=== PATIENT | male | born 1950 | race Two or more races ===

== ENCOUNTER 2020-02-22 05:53 | Inpatient (IN) | payer MEDICARE ==
[~2020-02-22] VITALS: Ht 165.1 cm; Wt 97.5 kg
[2020-02-22] VITALS (18 sets, daily range): BP systolic 111–156; BP diastolic 64–95
[2020-02-22] MEDS ORDERED: FLOMAX0.4 MG ORAL (06:47)
[2020-02-22] MEDS ORDERED: TYLENOL EXTRA500 MG ORAL (06:47)
[2020-02-22] MEDS ORDERED: ceFAZolin sod 1 GM in NS 55 ML IVPB ONE (07:00)
[2020-02-22] MEDS ORDERED: Midazolam 2mg/2ml Inj ONE (07:13)
[2020-02-22] MEDS ORDERED: fentaNYL 100 mcg/2 mL IV ONE (07:13)
[2020-02-22] MEDS ORDERED: Rocuronium Bromide 50mg/5ml Inj IV ONE (07:17)
[2020-02-22] MEDS ORDERED: LR 1000ml ONE (07:30)
[2020-02-22] MEDS ORDERED: Sterile Water Irrig 1000ml IRRIG ONE (07:30)
--- NOTE | 2020-02-22 07:39 | Anethesia Preoperative Eval ---
Anesthesia Pre-op PMH/ROS General Date of Evaluation: Feb 22, 2020 Time of Evaluation: 07:39 Anesthesiologist: lorrie ASA Score: ASA 2 Mallampati Score Class I : Soft palate, uvula, fauces, pillars visible Class II: Soft palate, uvula, fauces visible Class III: Soft palate, base of uvula visible Class IV: Only hard plate visible Mallampati Classification: Class III Surgeon: Martin Diagnosis: Enlarged Prostate Surgical Procedure: TURP Family History: no anesthesia problems Allergies: Coded Allergies: No Known Allergies (Unverified , 02/21/20) Medications: see eMAR Patient NPO?: Yes NPO Date: Feb 22, 2020 NPO Time: 00:01 Past Medical History Cardiovascular: Denies: HTN, CAD, SD, valve dz, arrhythmia, other Pulmonary: Denies: asthma, COPD, JUS, other Gastrointestinal/Genitourinary: Denies: GERD, CRI, ESRD, other Neurologic/Psychiatric: Denies: dementia, CVA, depression/anxiety, TIA, other Endocrine: Denies: DM, hypothyroidism, steroids, other HEENT: Denies: cataract (L), cataract (R), glaucoma, [place] (L), [place] (R), other Hematology/Immune: Denies: anemia, DVT, bleeding disorder, other Musculoskeletal/Integumentary: Denies: OA, RA, DJD, DDD, edema, other Other: obesity Anesthesia Pre-op Phys. Exam Physician Exam Last Vital Signs Date Time Temp Pulse Resp B/P (MAP) Pulse Ox O2 Delivery O2 Flow Rate FiO2 02/22/20 06:49 Room Air 02/22/20 06:28 97.0 60 18 115/66 (82) 96 Constitutional: NAD Neurologic: CN 2-12 intact Cardiovascular: RRR Respiratory: CTA Gastrointestinal: S/NT/ND Airway Exam Mallampati Classification 3 Mallampati Score: Class III MO: limited Neck: thick TMD: 2fb Anesthesia Pre-op A/P Studies Pre-op Studies: EKG - SR Risk Assessment & Plan Assessment: covid neg; denies changes in health Plan: GETA Status Change Before Surgery: No Pre-Antibiotics Drug: ancef Given Within 1 Hr of Incision: Yes Time Given: 07:40 Tess Grimes CRNA Feb 22, 2020 07:39
[2020-02-22] MEDS ORDERED: fentaNYL 100 mcg/2 mL IV PRN (07:45)
[2020-02-22] MEDS ORDERED: Acetaminophen (Non formulary) 100 ML IV ONE (07:45)
[2020-02-22] MEDS ORDERED: DiphenhydrAMINE 50mg/ml Inj IVP PRN (07:45)
--- NOTE | 2020-02-22 07:52 | Pre-Procedure Note/Attestation ---
Pre-Procedure Note/Attestation Complete Prior to Procedure Planned Procedure: not applicable Procedure Narrative: TURP Cystolytholopaxy Indications for Procedure Pre-Operative Diagnosis: bladder stone BPH Attestation I attest that I discussed the nature of the procedure; its benefits; risks and complications; and alternatives (and the risks and benefits of such alternatives), prior to the procedure, with the patient (or the patient's legal compliance representative). I attest that, if there was a reasonable possibility of needing a blood transfusion, the patient (or the patient's legal compliance representative) was given the [facility] standardized written summary, pursuant to the Nabil Dacia Blood Safety Act ([place] Health and Safety Code # 1645, as amended). I attest that I re-evaluated the patient just prior to the surgery and that there has been no change in the patient's H&P, except as documented below: Gucci Salazar MD Feb 22, 2020 07:52
[2020-02-22] MEDS ORDERED: Lidocaine 1% MPF 10mg/ml 5ml ONE (07:53)
[2020-02-22] MEDS ORDERED: Neostigmine 1mg/ml 10ml Inj ONE (07:53)
[2020-02-22] MEDS ORDERED: Metoclopramide 10mg/2ml Inj ONE (07:53)
[2020-02-22] MEDS ORDERED: Glycopyrrolate 0.2mg/ml 1ml Vial ONE (07:53)
--- NOTE | 2020-02-22 08:49 | Immediate Post-Op Evaluation ---
Immediate Post-Op Evalulation Immediate Post-Op Evalulation Procedure: TURP Date of Evaluation: Feb 22, 2020 Time of Evaluation: 08:48 IV Fluids: 800 Blood Products: 0 Estimated Blood Loss: 10 Blood Pressure Systolic: 156 Blood Pressure Diastolic: 90 Pulse Rate: 67 Respiratory Rate: 14 O2 Sat by Pulse Oximetry: 99 Temperature (Fahrenheit): 99.3 Nausea: No Vomiting: No Complications none Patient Status: awake, reacts, patent Hydration Status: adequate Drug: ancef Given Within 1 Hr of Incision: Yes Time Given: 07:40 Tess Grimes CRNA Feb 22, 2020 08:49
--- NOTE | 2020-02-22 09:13 | Brief Operative Note ---
Immediate Post Operative Note Operative Note Pre-op Diagnosis: bladder stone BPH Procedure: TURP Cystolopaxy Post-op Diagnosis: same Post-op Diagnosis: same as pre-op Surgeon: Venkata Salazar Anesthesia: general Specimen: yes Complications: none Condition: stable Fluids: 500 Estimated Blood Loss: minimal Implant(s) used?: No Gucci Salazar MD Feb 22, 2020 09:13
[2020-02-22] MEDS ORDERED: HYDROmorphone 1mg/ml Carpuject IVP PRN (09:15)
[2020-02-22 09:35] LABS: BASOPHILS % (AUTO) 1.7 % (0.0-2.0); HEMATOCRIT 42.8 % (42.0-52.0); HEMOGLOBIN 14.3 G/DL (14.2-18.0); MEAN CORPUSCULAR VOLUME 92 FL (80-99); MONOCYTES % (AUTO) 7.6 % (1.0-10.0); NEUTROPHILS % (AUTO) 44.6 % (45.0-75.0); PLATELET COUNT 204 K/UL (150-450); RED BLOOD COUNT 4.63 M/UL (4.70-6.10); RED CELL DISTRIBUTION WIDTH 11.6 % (11.6-14.8); WHITE BLOOD COUNT 9.1 K/UL (4.8-10.8)
[2020-02-22 09:48] LABS: ANION GAP 9 mmol/L (5-15); BLOOD UREA NITROGEN 23 mg/dL (7-18); CALCIUM 8.3 MG/DL (8.5-10.1); CARBON DIOXIDE 25 MMOL/L (21-32); CHLORIDE 109 MMOL/L (98-107); CREATININE 1.1 MG/DL (0.55-1.30); SODIUM 143 MMOL/L (136-145)
--- NOTE | 2020-02-22 09:50 | NUR ---
NURSE NOTES: PATIENT ARRIVED FROM PACU ON BED AOX4. SURGICAL ASSESSMENT DONE WITH ARCH SUPPORT TECHNICIAN. [address] CURRIE SECURED, PATENT. OUTPUT CHAPIN-COLORED EXPECTED. NO SEDIMENTS OR CLOTS PRESENT. MILD PAIN PRESENT. VSS. AFEBRILE. PATIENT ORIENTED TO ROOM. BED IN LOW AND LOCKED POSITION. BED ALARM ACTIVATED.DEMONSTRATED HOW TO USE CALL LIGHT. QUESTIONS ANSWERED, NEEDS MET AT THIS TIME. WILL CONTINUE TO MONITOR PATIENT'S STATUS.
--- NOTE | 2020-02-22 10:14 | 48 Hour Post Anesthesia Eval ---
Post Anesthesia Evaluation Procedure: TURP Date of Evaluation: Feb 22, 2020 Time of Evaluation: 10:14 Blood Pressure Systolic: 137 0: 84 Pulse Rate: 70 Respiratory Rate: 14 O2 Sat by Pulse Oximetry: 98 Airway: patent Nausea: No Vomiting: No Hydration Status: adequate Cardiopulmonary Status: stable Mental Status/LOC: patient returned to baseline Follow-up Care/Observations: na Post-Anesthesia Complications: none Follow-up care needed: N/A Tess Grimes CRNA Feb 22, 2020 10:14
[2020-02-22] MEDS: HYDROcodone/Acetamin 5/325 tab ORAL PRN ×3 (11:37→23:39)
[2020-02-22] MEDS: D5 1/2NS w/KCl 20mEq 1,000 ML IV SCH ×2 (11:37→21:59)
[2020-02-22] MEDS ORDERED: NS Irrig 2000ml IRRIG ONE (15:47)
[2020-02-22] MEDS ORDERED: NS Irrig 4000ml IRRIG ONE (15:47)
[2020-02-22] MEDS: ceFAZolin 2gm/50ml Premix 50 ML IV SCH ×2 (16:21→23:23)
--- NOTE | 2020-02-22 17:35 | NUR ---
NURSE NOTES: PATIENT REMAINS STABLE. PAIN MINIMUM. 3-WAY CURRIE PATENT AND SECURED MD PLACED. TOLERATING REGULAR MEAL WELL. VSS. AFEBRILE.
[2020-02-22] MEDS: Docusate 100mg cap ORAL SCH (18:06)
--- NOTE | 2020-02-22 19:23 | NUR ---
NURSE HAND-OFF: Important Events on Shift:N/A Patient Status: STABLE Diet: REGULAR Pending Orders: N/A Pending Results/Labs:N/A Pending MD notification:N/A Latest Vital Signs: Temperature 98.0 , Pulse 61 , B/P 135 /94 , Respiratory Rate 20 , O2 SAT 98 RA. Vital Sign Comment: STABLE Latest Mcadams Fall Score: 35 Fall Risk: Medium Risk Safety Measures: Call light , Bed Alarm , Side Rails Side Rails x1, Bed position Low and Locked. Fall Precautions: Report given to DONNA TREVIZO.
--- NOTE | 2020-02-22 19:30 | NUR ---
NURSE NOTES: Received report from garcia hunt. patient is on bed awake and verbally responsive. on room air, no sob. with 3 way galan catheter(medium traction) 24F. s/p turp today. with ongoing CBI. Left hand running d5 1/2 ns + 20 meq @ 100 ml/hr. patent and intact. denies any pain or discomfort. reiterated to call and ask for assistance. call light and light button within easy reach. bed locked and in lowest position. will continue plan of care.
[2020-02-23] VITALS: BP 100/61
[2020-02-23 04:00] VITALS: BP 121/65
[2020-02-23 05:31] LABS: BASOPHILS % (AUTO) 1.5 % (0.0-2.0); EOSINOPHILS % (AUTO) 4.6 % (0.0-3.0); HEMATOCRIT 41.4 % (42.0-52.0); HEMOGLOBIN 14.3 G/DL (14.2-18.0); LYMPHOCYTES % (AUTO) 33.3 % (20.0-45.0); MEAN CORPUSCULAR VOLUME 91 FL (80-99); MONOCYTES % (AUTO) 8.3 % (1.0-10.0); NEUTROPHILS % (AUTO) 52.3 % (45.0-75.0); PLATELET COUNT 196 K/UL (150-450); RED BLOOD COUNT 4.53 M/UL (4.70-6.10); RED CELL DISTRIBUTION WIDTH 11.5 % (11.6-14.8); WHITE BLOOD COUNT 11.4 K/UL (4.8-10.8)
[2020-02-23 05:45] LABS: ANION GAP 7 mmol/L (5-15); BLOOD UREA NITROGEN 13 mg/dL (7-18); CALCIUM 8.6 MG/DL (8.5-10.1); CARBON DIOXIDE 27 MMOL/L (21-32); CHLORIDE 104 MMOL/L (98-107); CREATININE 1.1 MG/DL (0.55-1.30); POTASSIUM 3.9 MMOL/L (3.5-5.1); SODIUM 138 MMOL/L (136-145)
--- NOTE | 2020-02-23 06:36 | NUR ---
NURSE HAND-OFF: Important Events on Shift:CBI MONITORING Patient Status: STABLE Diet: REGULAR Pending Orders: Pending Results/Labs: Pending MD notification: Latest Vital Signs: Temperature 97.8 , Pulse 64 , B/P 121 /65 , Respiratory Rate 20 , O2 SAT 99 , Room Air, O2 Flow Rate 3.0 . Vital Sign Comment: Latest Mcadams Fall Score: 35 Fall Risk: Medium Risk Safety Measures: Call light Within Reach, Bed Alarm Zone 1, Side Rails Side Rails x2, Bed position Low and Locked. Fall Precautions: Patient Fall Education Addendum: 02/23/20 at 0725 by Lazara Zavala RN HAND-OFF: Report given to garcia garcia.
--- NOTE | 2020-02-23 07:14 | NUR ---
NURSE NOTES: Report received from Radhika TREVIZO, rounds made. Patient resting in semi-fowlers position, in bed. AOx4, calm. No distress on RA. Encouraged IS, ankle rotation. Bilateral SCDs on. CBI (NS) via [address] with medium traction as ordered (remains the same), urine output red/clear, no clots noted. Pain to penile area 5/10, will medicate as ordered. Call light in reach, bed in lowest position, will continue to monitor.
[2020-02-23 08:00] VITALS: BP 126/82
[2020-02-23] MEDS: Docusate 100mg cap ORAL SCH ×2 (08:21→18:01)
[2020-02-23] MEDS: HYDROcodone/Acetamin 5/325 tab ORAL PRN (08:22)
[2020-02-23] MEDS: D5 1/2NS w/KCl 20mEq 1,000 ML IV SCH (08:22)
--- NOTE | 2020-02-23 09:11 | NUR ---
CASE MANAGEMENT: REVIEW 69 YEAR OLD MALE DIRECT ADMIT FROM HOME SI: ENLARGED PROSTATE . BLADDER STONE BPH TURP 02/21 T 97.0 HR 60 RR 18 BP 156/90 SAT 900% SIMPLE MASK 6.0 WBC 11.4 H/H 14.3/41.4 IS: ANCEF IV X1 PROPOFOL IV X1 DIPRIVAN IV X1 FENTANYL IV X1 VERSED IV X1 CBI CURRIE CATH PT EVAL PATIENT ADMITTED TO MED/SURG UNIT 02/22/2020 DCP: PATIENT IS FROM HOME
--- NOTE | 2020-02-23 09:12 | NUR ---
NURSE NOTES: Spoke to and ordered PT eval. Order noted and carried out.
[2020-02-23] MEDS: Levofloxacin 500mg tab ORAL SCH (09:48)
--- NOTE | 2020-02-23 10:37 | 48 Hour Post Anesthesia Eval ---
Post Anesthesia Evaluation Procedure: TURP Date of Evaluation: Feb 23, 2020 Time of Evaluation: 10:36 Blood Pressure Systolic: 128 0: 74 Pulse Rate: 68 Respiratory Rate: 18 Temperature (Fahrenheit): 97.6 O2 Sat by Pulse Oximetry: 98 Airway: patent Nausea: No Vomiting: No Pain Intensity: 2 Hydration Status: adequate Cardiopulmonary Status: stable Mental Status/LOC: patient returned to baseline Follow-up Care/Observations: n/a Post-Anesthesia Complications: none Follow-up care needed: N/A Varun Harper MD Feb 23, 2020 10:37
--- NOTE | 2020-02-23 10:45 | Consultation ---
DATE OF CONSULTATION: 02/23/2020 INTERNAL MEDICINE CONSULTATION CONSULTING PHYSICIAN: Aaron Sweeney MD. HISTORY OF PRESENT ILLNESS: This is a 69-year-old male who has undergone successful TURP and cystopexy by Dr. Gucci Salazar yesterday. His postoperative course has been unremarkable. At this point, he reports that he is feeling well. PAST MEDICAL HISTORY: Notable for hypertension, BPH, history of previous erythrocytosis and transaminitis. He also reports history of migraines, previous surgery appendectomy. He also reports a previous injury to his right back, which resulted in decreased sensation in his right lower extremity. HOME MEDICATIONS: Zyrtec, fluticasone, Flomax, guaifenesin, ibuprofen, albuterol, Os-Manish, Pepcid, Tylenol, Naprosyn, Imitrex p.r.n., and glucosamine. ALLERGIES: None reported. REVIEW OF SYSTEMS: Denies any headaches, hematemesis, melena, or hematochezia. PHYSICAL EXAMINATION: GENERAL: Reveals a 69-year-old male. VITAL SIGNS: Blood pressure 130/70, heart rate 84, respirations 20. He is afebrile. HEENT: Unremarkable. LUNGS: Clear breath sounds bilaterally. ABDOMEN: Soft. EXTREMITIES: There is no edema. NEUROLOGIC: Nonfocal. LABORATORY TESTING: Unremarkable preoperatively. IMPRESSION: 1. Postoperative day #1 status post TURP and cystopexy. 2. History of hypertension. DISCUSSION: The patient is doing well postop day #1. We will continue to monitor. Continue Giang irrigation is in place. We will check laboratories. Postoperative care, regular diet. DVT prophylaxis with SCDs. Aaron Sweeney M.D. DR: MONICA JOB#: [id number] CC:
[2020-02-23 12:00] VITALS: BP 114/76
--- NOTE | 2020-02-23 14:45 | NUR ---
P.T Note: P.T evaluation completed and initiated. Please refer to P.T evaluation for current functional status.
[2020-02-23 15:50] VITALS: BP 105/75
--- NOTE | 2020-02-23 15:54 | Consultation ---
History of Present Illness General Date patient seen: Feb 23, 2020 Present Illness HPI This is a very pleasant 69-year-old male who is status post TURP identified to have leukocytosis. After recent surgery felt some pelvic discomfort. Surgery called to evaluate assist with care. Patient seen, patient evaluated, chart reviewed. Patient states he is try to be ambulatory but difficult at times. No nausea vomiting. States that he has some pelvic discomfort cramping 6 out of 10 pain. Is been able to tolerate diet. Passing flatus. Allergies: Coded Allergies: No Known Allergies (Unverified , 02/21/20) COVID-19 Screening Contact w/high risk pt: No Experienced COVID-19 symptoms?: No Medication History Scheduled Tamsulosin HCl (Flomax), 0.4 MG ORAL DAILY, (Reported) Scheduled PRN Acetaminophen* (Tylenol Extra Strength*), 500 MG ORAL PRN PRN for Mild Pain/Temp > 100.5, (Reported) Patient History History Provided By: Patient, Medical Record, PMD Healthcare decision maker Resuscitation status Advanced Directive on File Past Medical/Surgical History Past Medical/Surgical History: (1) Leukocytosis Review of Systems Review of Symptoms General ROS: no weight loss or fever Psychological ROS: no depression or mood changes, no memory loss Ophthalmic ROS: no visual changes or eye irritation ENT ROS: no nasal congestion, hearing loss, dizziness Allergy and Immunology ROS: no allergic symptoms or urticaria Hematological and Lymphatic ROS: no swollen glands, unusual bleeding or bruising Endocrine ROS: no polyuria, polydipsia, weight changes, temperature intolerance Respiratory ROS: no cough, shortness of breath, or wheezing Cardiovascular ROS: no chest pain or dyspnea on exertion Gastrointestinal ROS: denies abdominal pain, bright red blood in stool. Musculoskeletal ROS: no myalgias or arthralgias Neurological ROS: no TIA or stroke symptoms Dermatological ROS: no new or changing skin lesions, rashes or pruritis Physical Exam Physical Exam General appearance: alert, cooperative, no distress, appears stated age Head: Normocephalic, without obvious abnormality, atraumatic Eyes: conjunctivae/corneas clear. PERRL, EOM's intact. Fundi benign Throat: Lips, mucosa, and tongue normal. Teeth and gums normal Neck: supple, symmetrical, trachea midline, no adenopathy, thyroid: not enlarge d, symmetric, no tenderness/mass/nodules, no carotid bruit and no JVD Lungs: clear to auscultation bilaterally Heart: regular rate and rhythm, S1, S2 normal, no murmur, click, rub or gallop Abdomen: soft, non-tender. Bowel sounds normal. No masses, no organomegaly Extremities: extremities normal, atraumatic, no cyanosis or edema Pulses: 2+ and symmetric Skin: Skin color, texture, turgor normal. No rashes or lesions Neurologic: Grossly normal Last 24 Hour Vital Signs Date Time Temp Pulse Resp B/P (MAP) Pulse Ox O2 Delivery O2 Flow Rate FiO2 02/23/20 12:00 97.8 64 20 114/76 (89) 95 02/23/20 10:37 68 18 98 02/23/20 09:00 Room Air 02/23/20 08:00 98.2 75 20 126/82 (97) 95 02/23/20 04:00 97.8 64 20 121/65 (83) 99 02/23/20 00:09 98.0 02/23/20 00:00 98.0 61 19 100/61 (74) 98 02/22/20 21:00 Room Air 02/22/20 20:00 98.0 62 20 119/68 (85) 99 02/22/20 18:39 98.0 02/22/20 16:00 98.0 61 20 135/94 (108) 98 Intake and Output 02/22/20 02/23/20 19:00 07:00 Intake Total 4610 ml 1800 ml Output Total 4070 ml 1750 ml Balance 540 ml 50 ml Intake Oral 2860 ml 800 ml IV Total 1750 ml 1000 ml Output Urine Total 4070 ml 1750 ml Laboratory Tests Test 02/23/20 04:40 White Blood Count 11.4 K/UL (4.8-10.8) H Red Blood Count 4.53 M/UL (4.70-6.10) L Hemoglobin 14.3 G/DL (14.2-18.0) Hematocrit 41.4 % (42.0-52.0) L Mean Corpuscular Volume 91 FL (80-99) Mean Corpuscular Hemoglobin 31.5 PG (27.0-31.0) H Mean Corpuscular Hemoglobin Concent 34.5 G/DL (32.0-36.0) Red Cell Distribution Width 11.5 % (11.6-14.8) L Platelet Count 196 K/UL (150-450) Mean Platelet Volume 6.9 FL (6.5-10.1) Neutrophils (%) (Auto) 52.3 % (45.0-75.0) Lymphocytes (%) (Auto) 33.3 % (20.0-45.0) Monocytes (%) (Auto) 8.3 % (1.0-10.0) Eosinophils (%) (Auto) 4.6 % (0.0-3.0) H Basophils (%) (Auto) 1.5 % (0.0-2.0) Sodium Level 138 MMOL/L (136-145) Potassium Level 3.9 MMOL/L (3.5-5.1) Chloride Level 104 MMOL/L (98-107) Carbon Dioxide Level 27 MMOL/L (21-32) Anion Gap 7 mmol/L (5-15) Blood Urea Nitrogen 13 mg/dL (7-18) Creatinine 1.1 MG/DL (0.55-1.30) Estimat Glomerular Filtration Rate > 60 mL/min (>60) Glucose Level 102 MG/DL (74-106) Calcium Level 8.6 MG/DL (8.5-10.1) Height (Feet): 5 Height (Inches): 5.00 Weight (Pounds): 204 Medications Current Medications Medications (Trade) Dose Ordered Sig/Jorge Route PRN Reason Start Time Stop Time Status Last Admin Dose Admin Acetaminophen/ Hydrocodone Bitart ([place] 5/325) 1 tab Q4H PRN ORAL Moderate Pain (Pain Scale 4-6) 02/22/20 09:15 02/29/20 09:14 02/23/20 08:22 Docusate Sodium (Colace) 100 mg TWICE A DAY ORAL 02/22/20 18:00 03/23/20 17:59 02/23/20 08:21 Hydromorphone HCl (Dilaudid) 1 mg Q3H PRN IVP pain score 4-6 02/22/20 09:15 02/29/20 09:14 Levofloxacin (Levaquin) 500 mg DAILY ORAL 02/23/20 10:00 03/01/20 09:59 02/23/20 09:48 Ondansetron HCl (Zofran) 4 mg Q6H PRN IVP Nausea & Vomiting 02/22/20 09:15 03/23/20 09:14 Assessment/Plan Problem List: (1) Leukocytosis Assessment & Plan: 61-year-old male status post TURP with leukocytosis. Unlikely infectious in etiology and likely reactive. No nausea vomiting fever chills. Pelvic pain explained in anticipated given recent procedure. Otherwise patient is tolerating diet ambulatory and the Giang is clearing out well. No acute intervention at this time. Trend labs. Medications reviewed and ordered as necessary. Will follow with serial examinations. Okay for diet as tolerated. Ambulate as tolerated. Incentive spirometry. Discharge planning. ICD Codes: D72.829 - Elevated white blood cell count, unspecified SNOMED: [id number], [id number] Terence Sumner Feb 23, 2020 15:54
[2020-02-23] MEDS ORDERED: GUAIFENESIN200 MG ORAL (17:19)
[2020-02-23] MEDS ORDERED: FAMOTIDINE20 MG ORAL (17:19)
[2020-02-23] MEDS ORDERED: FLUTICASONE PRO16 G1 NASAL (17:19)
[2020-02-23] MEDS ORDERED: SM GLUCOSAMINE1 EACH PO (17:19)
[2020-02-23] MEDS ORDERED: CALCIUM 500 +1 EAC6 PO (17:19)
[2020-02-23] MEDS ORDERED: IBUPROFEN200 MG ORAL (17:19)
[2020-02-23] MEDS ORDERED: ALBUTEROL SULF8.5 G1 INH (17:19)
[2020-02-23] MEDS ORDERED: ZYRTEC10 MG ORAL (17:19)
[2020-02-23] MEDS ORDERED: SUMATRIPTAN SUC50 MG PO (17:19)
[2020-02-23] MEDS ORDERED: NAPROXEN500 M2 ORAL (17:19)
--- NOTE | 2020-02-23 19:05 | NUR ---
NURSE HAND-OFF: Important Events on Shift:CBI continues, up ambulated in halls with PT, sat in chair, Levaquin PO started, IVF discontinued. Patient Status: stable Diet: regular CBI intake: 7750 ml CBI output: 9250 ml Pending Orders: discontinue FC at 0600 Pending Results/Labs:CBC BMP 02/23 Pending MD notification:none Latest Vital Signs: Temperature 98.1 , Pulse 64 , B/P 105 /75 , Respiratory Rate 18 , O2 SAT 93 , Room Air, O2 Flow Rate 3.0 . Vital Sign Comment: none Latest Mcadams Fall Score: 35 Fall Risk: Medium Risk Safety Measures: Call light Within Reach, Bed Alarm Zone 1, Side Rails Side Rails x2, Bed position Low and Locked. Fall Precautions: Yellow Socks Door Sign Patient Fall Education Report given to Hoang TREVIZO.
--- NOTE | 2020-02-23 19:25 | NUR ---
NURSE NOTES: Received report from Joanna TREVIZO. Rounding is done. Patient is a/o x4. Denied any pain at this time. No any distress noted at this time. Breathing is even and unlabored. Encouraged IS, ankle rotation. Bilateral SCDs on. CBI (NS) via [address] with medium traction as ordered (remains the same), urine output red/clear, no clots noted. IV site is intact and patient. Bed is on alarm, locked, and lowest position. Will continue to monitor.
[2020-02-23 20:00] VITALS: BP 120/65
[2020-02-24] VITALS: BP 118/73
[2020-02-24 04:00] VITALS: BP 131/87
[2020-02-24] MEDS: HYDROcodone/Acetamin 5/325 tab ORAL PRN ×2 (05:44→13:43)
--- NOTE | 2020-02-24 06:10 | NUR ---
NURSE NOTES: Removed galan cath. as ordered and will follow up for urine output.
[2020-02-24 07:10] LABS: BASOPHILS % (AUTO) 1.3 % (0.0-2.0); EOSINOPHILS % (AUTO) 4.4 % (0.0-3.0); HEMATOCRIT 45.6 % (42.0-52.0); HEMOGLOBIN 15.4 G/DL (14.2-18.0); LYMPHOCYTES % (AUTO) 35.1 % (20.0-45.0); MEAN CORPUSCULAR VOLUME 91 FL (80-99); MONOCYTES % (AUTO) 7.5 % (1.0-10.0); NEUTROPHILS % (AUTO) 51.7 % (45.0-75.0); PLATELET COUNT 218 K/UL (150-450); RED BLOOD COUNT 4.99 M/UL (4.70-6.10); RED CELL DISTRIBUTION WIDTH 11.3 % (11.6-14.8); WHITE BLOOD COUNT 11.2 K/UL (4.8-10.8)
[2020-02-24 07:16] LABS: ANION GAP 8 mmol/L (5-15); BLOOD UREA NITROGEN 17 mg/dL (7-18); CARBON DIOXIDE 28 MMOL/L (21-32); CHLORIDE 104 MMOL/L (98-107); CREATININE 1.1 MG/DL (0.55-1.30); SODIUM 140 MMOL/L (136-145)
--- NOTE | 2020-02-24 07:25 | NUR ---
NURSE NOTES: Report received from Hoang RN, rounds made. Patient resting in semi-fowlers position, in bed. AOx4, calm. No distress on RA. LH saline lock, site asymptomatic. Encouraged IS, ankle rotation. Bilateral SCDs on. FC discontinued this AM, voiding in urinal, urine output red/pink tinged/clear, no clots noted. Pain to penile area 4/10, will medicate as ordered. Call light in reach, bed in lowest position, will continue to monitor.
--- NOTE | 2020-02-24 07:30 | NUR ---
NURSE HAND-OFF: Important Events on Shift:[CBI] Patient Status: [stable] Diet: [regular] Pending Orders: [n] Pending Results/Labs:[n] Pending MD notification:[n] Latest Vital Signs: Temperature 98.0 , Pulse 63 , B/P 131 /87 , Respiratory Rate 20 , O2 SAT 99 , Room Air, O2 Flow Rate 3.0 . Vital Sign Comment: [stable] Latest Mcadams Fall Score: 35 Fall Risk: Medium Risk Safety Measures: Call light Within Reach, Bed Alarm Zone 1, Side Rails Side Rails x2, Bed position Low and Locked. Fall Precautions: Yellow Socks Door Sign Patient Fall Education Report given to [Joanna TREVIZO].
[2020-02-24 08:00] VITALS: BP 110/57
[2020-02-24] MEDS ORDERED: Tubing IV Secondary IV ONE (08:55)
[2020-02-24] MEDS ORDERED: NS Irrig 4000ml IRRIG ONE (08:55)
[2020-02-24] MEDS: Docusate 100mg cap ORAL SCH (09:08)
[2020-02-24] MEDS: Levofloxacin 500mg tab ORAL SCH (09:10)
--- NOTE | 2020-02-24 09:34 | NUR ---
NURSE NOTES: Seen and evaluated by and patient cleared to discharge surgical standpoint. Order noted and carried out.
--- NOTE | 2020-02-24 11:17 | Pulmonology Progress Note ---
Subjective Interval Events: Padmaja gilmore Constitutional: Reports: no symptoms HEENT: Repors: no symptoms Respiratory: Reports: no symptoms Cardiovascular: Reports: no symptoms Gastrointestinal/Abdominal: Reports: no symptoms Allergies: Coded Allergies: No Known Allergies (Unverified , 02/21/20) Objective Last 24 Hour Vital Signs Date Time Temp Pulse Resp B/P (MAP) Pulse Ox O2 Delivery O2 Flow Rate FiO2 02/24/20 08:00 97.0 69 18 110/57 (74) 94 02/24/20 04:00 98.0 63 20 131/87 (102) 99 02/24/20 00:00 97.9 65 20 118/73 (88) 95 02/23/20 21:00 Room Air 02/23/20 20:00 98.2 63 20 120/65 (83) 95 02/23/20 15:50 98.1 64 18 105/75 (85) 93 02/23/20 12:00 97.8 64 20 114/76 (89) 95 Intake and Output 02/23/20 02/24/20 19:00 07:00 Intake Total 3590 ml 800 ml Output Total 1500 ml 2020 ml Balance 2090 ml -1220 ml Intake Oral 3390 ml 800 ml IV Total 200 ml Output Urine Total 1500 ml 2020 ml General Appearance: no acute distress HEENT: normocephalic Respiratory: chest wall non-tender, lungs clear Cardiovascular: normal peripheral pulses, normal rate Abdomen: normal bowel sounds Extremities: no cyanosis Microbiology Date/Time Source Procedure Growth Status 02/22/20 06:10 Nasal Nares MRSA Culture - Final NO METHICILLIN RESISTANT STAPH AUREUS... Complete Laboratory Tests 02/24/20 05:40: White Blood Count 11.2H, Red Blood Count 4.99, Hemoglobin 15.4, Hematocrit 45.6, Mean Corpuscular Volume 91, Mean Corpuscular Hemoglobin 30.9, Mean Corpuscular Hemoglobin Concent 33.8, Red Cell Distribution Width 11.3L, Platelet Count 218, Mean Platelet Volume 6.9, Neutrophils (%) (Auto) 51.7, Lymphocytes (%) (Auto) 35.1, Monocytes (%) (Auto) 7.5, Eosinophils (%) (Auto) 4.4H, Basophils (%) (Auto) 1.3, Sodium Level 140, Potassium Level 4.0, Chloride Level 104, Carbon Dioxide Level 28, Anion Gap 8, Blood Urea Nitrogen 17, Creatinine 1.1, Estimat Glomerular Filtration Rate > 60, Glucose Level 93, Calcium Level 9.0 Current Medications Medications (Trade) Dose Ordered Sig/Jorge Route PRN Reason Start Time Stop Time Status Last Admin Dose Admin Acetaminophen/ Hydrocodone Bitart ([place] 5/325) 1 tab Q4H PRN ORAL Moderate Pain (Pain Scale 4-6) 02/22/20 09:15 02/29/20 09:14 02/24/20 05:44 Docusate Sodium (Colace) 100 mg TWICE A DAY ORAL 02/22/20 18:00 03/23/20 17:59 02/24/20 09:08 Hydromorphone HCl (Dilaudid) 1 mg Q3H PRN IVP pain score 4-6 02/22/20 09:15 02/29/20 09:14 Levofloxacin (Levaquin) 500 mg DAILY ORAL 02/23/20 10:00 03/01/20 09:59 02/24/20 09:10 Ondansetron HCl (Zofran) 4 mg Q6H PRN IVP Nausea & Vomiting 02/22/20 09:15 03/23/20 09:14 Assessment/Plan Assessment/Plan IMPRESSION: 1. Postoperative day #2 status post TURP and cystopexy. 2. History of hypertension. DISCUSSION: The patient is doing well postop day #2. DC galan Dc home after he voids Rx given Fausto Lovell Omar Syed MD Feb 24, 2020 11:17
[2020-02-24] MEDS ORDERED: LEVOFLOXACIN500 MG ORAL (11:19)
[2020-02-24] MEDS ORDERED: COLACE100 MG ORAL (11:19)
[2020-02-24] MEDS ORDERED: HYDROCODON-ACE1 EA15 ORAL (11:19)
--- NOTE | 2020-02-24 11:21 | General Progress Note ---
Advance Care Planning Advance Care Planning Advance Care Planning Date of Discussion: A [id number] discussion with the patient regarding the patient's advanced care planning took place during this hospitalization on the above date. The discussion included the explanation and discussion of advance directives and associated forms/documents, as well as the patient's current code status. We also discussed at length the patient's medical conditions (both acute and chronic), general prognosis, treatment options, and goals of care. The following summarizes the discussion: Advance Care Planning/Goals of Care: - Will attempt to fill out an AD and/or POLST with the patient prior to discharge, if not already completed - Continue current evaluation and management of any acute and chronic medical issues - Will continue to support the patient/family - Will continue to discuss both short- and long-term goals of care DPOA-HC/Surrogate Decision Maker: None currently appointed Code Status: Full Code A total of 22 minutes was spent on this discussion, including counseling, answering questions, and completing, if any, pertinent advanced care planning forms/documents. Time of note may not reflect time of encounter. Aaron Sweeney MD Feb 24, 2020 11:21
--- NOTE | 2020-02-24 11:24 | Consultation ---
Consult Note Consult Note Extra 30 minutes were spent on reviewing outpatient records, medication reconciliation and coordination of care between surgery and urology Aaron Sweeney MD Feb 24, 2020 11:24
[2020-02-24 12:00] VITALS: BP 115/80
--- NOTE | 2020-02-24 15:15 | NUR ---
NURSE NOTES: Discharge instructions and prescriptions reviewed with patient, verbalized understanding. All belongings, discharge instructions and prescriptions given to patient. ID bracelet removed. LH saline lock, discontinued, no active bleeding. [facility], in stable condition. Discharged at 1515.
--- NOTE | 2020-02-24 19:00 | Operative Note - Dictated ---
DATE OF OPERATION: 02/22/2020 PREOPERATIVE DIAGNOSES: BPH, bladder stone. POSTOPERATIVE DIAGNOSES: BPH, bladder stone. OPERATION: 1. Transurethral resection of prostate. 2. Cystolitholapaxy. BREAD SLICER MACHINE: Gucci Salazar M.D. ANESTHESIA: General. FINDINGS: Stone in the bladder, enlarged prostate. INDICATIONS FOR SURGERY: The patient underwent previous Rezum procedure and was doing well until recently when he developed dysuria and recurrence of symptoms. Cystoscopy showed bladder stone and still recurrent BPH. Treatment options were explained to him in great length including all potential complications. He signed a consent. PROCEDURE IN DETAIL: He was brought to the operating room, placed in lithotomy position, prepped and draped in standard fashion. Under general anesthesia, cystoscope was introduced into the bladder. Stone was treated with stone crushed and removed for pathologic examination. After standard transurethral resection of the prostate was performed, all the chips were removed for pathologic examination. Hemostasis. A Giang catheter 22 three-way was placed. CBI was started. The patient tolerated the procedure well. No evidence of complications. Gucci Salazar M.D. DR: Gabi JOB#: [id number] CC:
--- NOTE | 2020-02-24 21:11 | Surgery Progress Note ---
Surgery Progress Note Subjective Additional Comments late entry as patient seen prior and cleared for d/c pain resolved labs improved tolerating diet d/c today f/u outpatient thank you Objective Last 24 Hour Vital Signs Date Time Temp Pulse Resp B/P (MAP) Pulse Ox O2 Delivery O2 Flow Rate FiO2 02/24/20 12:00 97.5 73 19 115/80 (92) 96 02/24/20 09:00 Room Air 02/24/20 08:00 97.0 69 18 110/57 (74) 94 02/24/20 04:00 98.0 63 20 131/87 (102) 99 02/24/20 00:00 97.9 65 20 118/73 (88) 95 I&O Intake and Output 02/23/20 02/24/20 19:00 07:00 Intake Total 3590 ml 800 ml Output Total 1500 ml 2020 ml Balance 2090 ml -1220 ml Intake Oral 3390 ml 800 ml IV Total 200 ml Output Urine Total 1500 ml 2020 ml Dressing: dry Wound: clean Cardiovascular: RSR Respiratory: clear Abdomen: soft, flat, non-tender, present bowel sounds Extremities: no edema, no tenderness, no cyanosis Laboratory Tests Test 02/24/20 05:40 White Blood Count 11.2 K/UL (4.8-10.8) H Red Blood Count 4.99 M/UL (4.70-6.10) Hemoglobin 15.4 G/DL (14.2-18.0) Hematocrit 45.6 % (42.0-52.0) Mean Corpuscular Volume 91 FL (80-99) Mean Corpuscular Hemoglobin 30.9 PG (27.0-31.0) Mean Corpuscular Hemoglobin Concent 33.8 G/DL (32.0-36.0) Red Cell Distribution Width 11.3 % (11.6-14.8) L Platelet Count 218 K/UL (150-450) Mean Platelet Volume 6.9 FL (6.5-10.1) Neutrophils (%) (Auto) 51.7 % (45.0-75.0) Lymphocytes (%) (Auto) 35.1 % (20.0-45.0) Monocytes (%) (Auto) 7.5 % (1.0-10.0) Eosinophils (%) (Auto) 4.4 % (0.0-3.0) H Basophils (%) (Auto) 1.3 % (0.0-2.0) Sodium Level 140 MMOL/L (136-145) Potassium Level 4.0 MMOL/L (3.5-5.1) Chloride Level 104 MMOL/L (98-107) Carbon Dioxide Level 28 MMOL/L (21-32) Anion Gap 8 mmol/L (5-15) Blood Urea Nitrogen 17 mg/dL (7-18) Creatinine 1.1 MG/DL (0.55-1.30) Estimat Glomerular Filtration Rate > 60 mL/min (>60) Glucose Level 93 MG/DL (74-106) Calcium Level 9.0 MG/DL (8.5-10.1) Plan Problems: (1) Leukocytosis Assessment & Plan: 61-year-old male status post TURP with leukocytosis. Unlikely infectious in etiology and likely reactive. No nausea vomiting fever chills. Pelvic pain explained in anticipated given recent procedure. Otherwise patient is tolerating diet ambulatory and the Giang is clearing out well. No acute intervention at this time. Trend labs. Medications reviewed and ordered as necessary. Will follow with serial examinations. Okay for diet as tolerated. Ambulate as tolerated. Incentive spirometry. Discharge planning. Terence Sumner Feb 24, 2020 21:11
--- NOTE | 2020-02-25 18:20 | Discharge Summary ---
Discharge Summary Discharge Summary _ DATE OF ADMISSION: 02/22/2020 DATE OF DISCHARGE: 02/24/2020 DISCHARGED BY: Dr. Gucci Salazar CONSULTANTS: Dr. Terence Sweeney BRIEF HOSPITAL COURSE: Patient is a 69 year-old male who was diagnosed with BPH and bladder stone, was admitted and underwent TURP and cystolopaxy. Patient tolerated procedure well. Postoperatively, he was admitted for postop care. He had leukocytosis. He was resumed home medications. He was continued on Giang irrigation. He was encouraged ambulation. He was passing flatus. Patient was tolerating diet. Giang catheter was clearing. He was encouraged to use incentive spirometry. Leukocytosis was likely reactive. Giang catheter was eventually discontinued. Patient was voiding freely. Patient was cleared for discharge home. FINAL DIAGNOSES: BPH and bladder stone Status post transurethral resection of prostate and cystolitholopaxy DISPOSITION: Patient was discharged home. DISCHARGE MEDICATIONS: Refer to Discharge Medication List. DISCHARGE INSTRUCTIONS: Follow-up in a week. I have been assigned to complete a discharge summary on this account, I was not involved with the patient's management.--CHRISTIN Liu Jacqueline Robles NP Feb 25, 2020 18:20
== END 2020-02-24 15:15 | disposition home or self-care (01) | DRG 714 ==
LOC: SDSOVERFLO 05:53 → 3E 10:01
PROC: 0VT08ZZ Resection of Prostate, Via Natural or Artificial Opening Endoscopic (ICD-10-PCS; principal; 2020-02-22 07:30)
PROC: 0TCB8ZZ Extirpation of Matter from Bladder, Via Natural or Artificial Opening Endoscopic (ICD-10-PCS; principal; 2020-02-22 07:30)
DX: N40.1 Benign prostatic hyperplasia with lower urinary tract symptoms (principal); N21.0 Calculus in bladder; M79.672 Pain in left foot; M79.671 Pain in right foot
CPT/HCPCS: 36415; 80048; 85025; 86850; 86900; 86901; 87081; 94003; 94150; J2250; J2405; J2710; J2765; U0002